=== PATIENT | male | born 1995 | race Two or more races ===

== ENCOUNTER 2021-01-31 16:10 | Emergency (ER) | payer SELFPAY ==
[~2021-01-31] VITALS: Ht 167.6 cm; Wt 72.6 kg
[2021-01-31 16:10] VITALS: BP 136/85
[2021-01-31] MEDS ORDERED: methylPREDNISolone SOD SUCC 125 MG/2 ML VL IV ONE (17:15)
[2021-01-31] MEDS ORDERED: CLINDAMYCIN 600MG IV 50 ML IV ONE (17:15)
[2021-01-31] MEDS ORDERED: SODIUM CHLORIDE 0.9% 1,000 ML IV ONE (17:15)
[2021-01-31] MEDS ORDERED: cefTRIAXone 1GM/50ML D5W 50 ML IV ONE (17:15)
[2021-01-31] MEDS ORDERED: KETOROLAC TROMETH 30 MG/ML 1ML VIAL IV ONE (17:15)
== END 2021-01-31 18:41 | disposition home or self-care (01) ==
LOC: ER 16:10
DX: J03.90 Acute tonsillitis, unspecified (principal)
CPT/HCPCS: 96365; 96367; 96375; 99284; J0696; J1885; J2930; J3490; J7030